=== PATIENT | male | born 2000 | race Caucasian/White ===

== ENCOUNTER 2018-10-06 21:50 | Emergency (ER) | payer OTHER ==
[2018-10-07] MEDS ORDERED: ONDANSETRON (ODT) 4 MG TAB ODT (01:17)
[2018-10-07] MEDS: ACETAMINOPHEN 500 MG TAB PO (01:24)
[2018-10-07] MEDS: IBUPROFEN 600 MG TAB PO (01:24)
[2018-10-07] MEDS: DEXAMETHASONE 10 MG/ML 1 ML INJ IM (01:25)
[2018-10-07] MEDS: AMOXICILLIN 500 MG CAP PO (01:30)
== END 2018-10-07 02:06 | disposition home or self-care (01) ==
LOC: FTE 21:50
DX: J02.0 Streptococcal pharyngitis (principal)
CPT/HCPCS: 96372; 99284-25